=== PATIENT | male | born 1980 | race African-American/Black ===

== ENCOUNTER 2017-01-25 00:16 | Emergency (ER) | payer SELFPAY ==
[~2017-01-25] VITALS: Ht 177.8 cm; Wt 120.2 kg
== END 2017-01-25 01:35 | disposition left against medical advice (07) ==
LOC: EDBD 00:16 → ER 00:21
DX: R40.1 Stupor (principal); Z53.21 Procedure and treatment not carried out due to patient leaving prior to being seen by health care provider